=== PATIENT | female | born 1990 | race Caucasian/White ===

== ENCOUNTER 2020-03-31 01:10 | Emergency (ER) | payer MEDICAID ==
[~2020-03-31] VITALS: Ht 157.5 cm; Wt 97.7 kg
[2020-03-31 01:13] VITALS: Ht 157.5 cm; Wt 97.7 kg
[2020-03-31] MEDS ORDERED: TIROSINT25 MCG PO (01:16)
[2020-03-31] MEDS ORDERED: KLONOPIN1 MG PO (01:16)
[2020-03-31] MEDS ORDERED: GABAPENTIN300 MG PO (01:16)
[2020-03-31] MEDS ORDERED: TOPROL XL25 MG PO (01:16)
[2020-03-31] MEDS ORDERED: PROTONIX20 MG (01:16)
[2020-03-31] MEDS ORDERED: TORADOL10 MG PO (01:17)
[2020-03-31] MEDS ORDERED: CYMBALTA60 MG PO (01:17)
[2020-03-31] MEDS ORDERED: ALBUTEROL SULF8.5 GM INH (01:17)
[2020-03-31] MEDS ORDERED: SEROQUEL200 MG (01:17)
[2020-03-31] MEDS ORDERED: PHENERGAN50 MG RC (01:18)
[2020-03-31] MEDS ORDERED: ZOFRAN8 MG PO (01:18)
[2020-03-31 01:58] LABS: HCG URINE NEGATIVE (NEGATIVE)
[2020-03-31 02:00] LABS: BACTERIA NONE SEEN HPF (NONE SEEN); BILIRUBIN NEGATIVE (NEGATIVE); EPITHELIAL CELLS 0-5 /hpf (0-5); KETONE NEGATIVE (NEGATIVE); NITRITE NEGATIVE (NEGATIVE); UROBILINOGEN NORMAL mg/dL (< 2); WHITE CELLS - URINE 0-5 HPF (0-4)
[2020-03-31 02:32] LABS: BASOPHILS 0.2 % (0-2); EOSINOPHILS 1.3 % (0-7); HEMATOCRIT 39.8 % (36.0-48.0); HEMOGLOBIN 13.1 g/dL (12-16); IMMATURE GRANULOCYTES 0.6 % (0-5); LYMPHOCYTES 33.6 % (15-50); MCHC 32.9 g/dL (31.0-37.0); MEAN PLATELET VOLUME 9.5 fL (7.4-10.4); NEUTROPHILS 58.3 % (40-80); PLATELET COUNT 337 10x3/uL (130-400); RBC 4.68 10x6/uL (4.00-5.40); WBC 14.9 10x3/uL (4.8-10.8)
[2020-03-31 02:41] LABS: ANION GAP 9.7 mmol/L (8-16); CALCIUM 9.2 mg/dL (8.5-10.1); CARBON DIOXIDE 26.7 mmol/L (21.0-32.0); POTASSIUM - SERUM 3.4 mmol/L (3.5-5.1)
[2020-03-31 02:42] LABS: INR 1.05 (0.85-1.17); PROTIME 13.6 SECONDS (11.6-15.0)
[2020-03-31 02:47] LABS: ALBUMIN 3.9 g/dL (3.4-5.0); BILIRUBIN - TOTAL 0.53 mg/dL (0.2-1.3); PROTEIN - SERUM 7.9 g/dL (6.4-8.2)
[2020-03-31] MEDS ORDERED: HYDROCODON-ACE1 EA10 PO (03:47)
[2020-03-31] MEDS ORDERED: FLOMAX0.4 MG PO (03:47)
[2020-03-31 04:31] VITALS: BP 98/54
== END 2020-03-31 04:20 | disposition home or self-care (01) ==
LOC: D.ER 01:10
PROVIDERS: Family Medicine
DX: N20.1 Calculus of ureter (principal); R10.9 Unspecified abdominal pain; R31.9 Hematuria, unspecified; E07.9 Disorder of thyroid, unspecified; J45.909 Unspecified asthma, uncomplicated; Z72.0 Tobacco use